=== PATIENT | female | born 1940 | race Two or more races ===

== ENCOUNTER → 2024-12-09 | Outpatient (CLI) | payer MEDICARE, MEDICAID, SELFPAY ==
[2024-12-09 08:43] LABS: Cardiac Risk Estimate 2.6 RATIO (3.7-5.6); Cholesterol 160 mg/dL (132-200); HDL Cholesterol 62 mg/dL (40-60); LDL Cholesterol,Calculated 77 mg/dL (0-130); Triglycerides 105 mg/dL (30-150)
== END | disposition home or self-care (01) ==
PROVIDERS: PCP Internal Medicine
DX: E78.5 Hyperlipidemia, unspecified (principal)
CPT/HCPCS: 36415; 80061